=== PATIENT | female | born 1965 | race Caucasian/White ===

== ENCOUNTER 2016-09-26 09:01 | Day surgery (SDC) | payer BC ==
[2016-09-26] MEDS ORDERED: Lactated Ringers 1,000 ML IV SCH (09:15)
[2016-09-26] MEDS ORDERED: Propofol 200 MG/20 ML SDV IV ONE (11:30)
[2016-09-26] MEDS ORDERED: Midazolam 1 MG/ML 2 ML SDV IV ONE (11:30)
--- NOTE | 2016-09-26 12:04 | PCM.OPNOTE ---
- General Post-Op/Procedure Note Date of Surgery/Procedure: 09/26/16 Operative Procedure(s): c scope Findings: normal colon Pre Op Diagnosis: colon cancer screening Post-Op Diagnosis: nl colon Anesthesia Technique: MAC Primary Surgeon: Humble Sanchez Anesthesia Provider: Saundra Gomez Pathology: none Complications: None Condition: Good Free Text/Narrative:: see dictation
[2016-09-26 12:47] VITALS: BP 134/88
--- NOTE | 2016-09-27 00:53 | OR ---
DATE OF OPERATION: 09/26/2016 SURGEON: Humble Sanchez MD PROCEDURE PERFORMED: Screening colonoscopy. PREOPERATIVE DIAGNOSIS: Need for colon cancer screening. POSTOPERATIVE DIAGNOSIS: Normal scope. INDICATIONS FOR PROCEDURE: This is a 51-year-old white female, referred for initial screening colonoscopy. She was offered and accepted same. DESCRIPTION OF OPERATION: After an excellent IV sedation was administered, digital rectal exam was performed. No significant abnormality was noted. The flexible colonoscope was inserted and advanced without difficulty to the cecum. The prep was excellent. Following findings were noted. Ascending colon unremarkable. Transverse colon unremarkable. Descending colon unremarkable. Sigmoid and rectum unremarkable. Colon was deflated. The scope was removed. The patient tolerated the procedure well, and was taken to recovery room in good condition. /[id number] /KAREN
== END 2016-09-26 12:35 | disposition home or self-care (01) ==
LOC: FB.SDS 09:01
PROVIDERS: ATTEND Surgery
DX: Z12.11 Encounter for screening for malignant neoplasm of colon (principal); K21.9 Gastro-esophageal reflux disease without esophagitis; Z88.0 Allergy status to penicillin; Z88.1 Allergy status to other antibiotic agents; Z79.899 Other long term (current) drug therapy; Z90.49 Acquired absence of other specified parts of digestive tract; Z98.890 Other specified postprocedural states
CPT/HCPCS: 45378; 81025; J2250; J2704; J7120